=== PATIENT | female | born 1955 | race Caucasian/White ===

== ENCOUNTER → 2023-08-16 17:53 | Outpatient (REF) | payer MEDICARE, OTHER, SELFPAY | LOC: WDC 17:53 | PROVIDERS: ATTENDING PHYSICIAN Family Medicine Geriatric Medicine; FAMILY PHYSICIAN Family Medicine | DX: R92.8 Other abnormal and inconclusive findings on diagnostic imaging of breast (principal) | CPT/HCPCS: 77062; 77063; 77066; 77067 ==

== ENCOUNTER → 2024-08-23 06:51 | Outpatient (REF) | payer MEDICARE, OTHER, SELFPAY | LOC: WDC 06:51 | PROVIDERS: ATTENDING PHYSICIAN Family Medicine Geriatric Medicine; FAMILY PHYSICIAN Family Medicine | DX: Z12.31 Encounter for screening mammogram for malignant neoplasm of breast (principal); Z12.39 Encounter for other screening for malignant neoplasm of breast; Z85.3 Personal history of malignant neoplasm of breast; D05.11 Intraductal carcinoma in situ of right breast | CPT/HCPCS: 77063; 77067 ==

== ENCOUNTER → 2024-10-12 13:32 | Outpatient (REF) | payer MEDICARE, OTHER, SELFPAY | LOC: RAD 13:32 | PROVIDERS: ATTENDING PHYSICIAN Obstetrics & Gynecology Gynecologic Oncology; FAMILY PHYSICIAN Family Medicine | DX: C50.812 Malignant neoplasm of overlapping sites of left female breast (principal); M60.89 Other myositis, multiple sites; D64.9 Anemia, unspecified; D51.9 Vitamin B12 deficiency anemia, unspecified; C54.1 Malignant neoplasm of endometrium | CPT/HCPCS: 71260; 74177; Q9967 ==